=== PATIENT | female | born 1945 | race Caucasian/White ===

== ENCOUNTER 2019-01-13 07:34 | Emergency (ER) | payer OTHER, MEDICAID ==
[2019-01-13] MEDS: ALBUTEROL 0.5% (NEB) 2.5 MG/0.5 ML AMP INH (07:59)
[2019-01-13] MEDS: IPRATROPIUM (NEB) 0.5 MG/2.5 ML AMP INH (07:59)
[2019-01-13] MEDS: METHYLPREDNISOLONE 125 MG INJ IV (08:21)
[2019-01-13 08:25] LABS: ADD MAN DIFF? NO
[2019-01-13 08:31] LABS: BASOPHILS % 0.8 % (0.0-2.0); EOSINOPHILS # 0.3 10^3/ul (0.0-0.5); EOSINOPHILS % 6.8 % (0.0-7.0); HEMATOCRIT 36.7 % (37.0-47.0); HEMOGLOBIN 11.9 g/dl (12.0-16.0); LYMPHOCYTES # 1.2 10^3/ul (0.8-2.9); LYMPHOCYTES % 24.7 % (15.0-51.0); MEAN CORPUSCULAR HEMOGLOBIN 29.9 pg (29.0-33.0); MEAN CORPUSCULAR HGB CONC 32.4 g/dl (32.0-37.0); MEAN CORPUSCULAR VOLUME 92.2 fl (82.0-101.0); MEAN PLATELET VOLUME 11.3 fl (7.4-10.4); MONOCYTE # 0.3 10^3/ul (0.3-0.9); MONOCYTES % 6.8 % (0.0-11.0); NEUTROPHIL # 2.9 10^3/ul (1.6-7.5); NEUTROPHILS % 60.5 % (39.0-77.0); PLATELET COUNT 124 10^3/UL (140-415); RED BLOOD COUNT 3.98 10^6/ul (4.20-5.40); RED CELL DISTRIBUTION WIDTH 12.6 % (11.5-14.5)
[2019-01-13 08:31] LABS: WHITE BLOOD COUNT 4.7 10^3/ul (4.8-10.8)
[2019-01-13 08:55] LABS: ANION GAP 8 (5-13); BLOOD UREA NITROGEN 41 mg/dl (7-20); CALCIUM 9.1 mg/dl (8.4-10.2); CARBON DIOXIDE 24 mmol/L (21-31); CHLORIDE 108 mmol/L (97-110); CREATININE 1.38 mg/dl (0.44-1.00); GLUCOSE 187 mg/dl (70-220); POTASSIUM 4.1 mmol/L (3.5-5.1); SODIUM 140 mmol/L (135-144)
[2019-01-13 09:05] LABS: TROPONIN-I < 0.012 ng/ml (0.000-0.120)
[2019-01-13 09:08] LABS: CARBAMAZEPINE (TEGRETOL) < 3.0 ug/ml (8.0-12.0)
[2019-01-13] MEDS: LORAZEPAM 2 MG INJ IV (09:13)
[2019-01-13] MEDS: SOD CHLORIDE 0.9% 1,000 ML IV (10:50)
== END 2019-01-13 18:56 | disposition home or self-care (01) ==
LOC: E/R 07:34
DX: J44.1 Chronic obstructive pulmonary disease with (acute) exacerbation (principal); F17.200 Nicotine dependence, unspecified, uncomplicated; I10 Essential (primary) hypertension; E11.9 Type 2 diabetes mellitus without complications
CPT/HCPCS: 71045; 80048; 80156; 82962; 84484; 85025; 93005; 94644; 96374; 96375; 99285-25